=== PATIENT | female | born 1980 | race Hispanic/Latino ===

== ENCOUNTER 2020-06-02 09:43 | Outpatient (CLI) | payer OTHER, SELFPAY ==
[2020-06-02 10:02] LABS: Hematocrit 40.1 % (37.0-47.0); Hemoglobin 13.1 g/dL (12.0-15.0)
== END 2020-06-02 09:44 | disposition home or self-care (01) ==
LOC: ANHSURGERY 09:46
PROVIDERS: Anesthesiology; PCP Family Medicine; Visit Provider Obstetrics & Gynecology
DX: N92.0 Excessive and frequent menstruation with regular cycle (principal)
CPT/HCPCS: 36415; 85014; 85018

== ENCOUNTER 2020-06-09 00:09 | Outpatient (CLI) | payer OTHER, SELFPAY ==
[2020-06-09 19:58] LABS: SARS-CoV-2 RNA PCR Negative
== END 2020-06-09 00:10 | disposition home or self-care (01) ==
LOC: ANHCOVIDDT 00:09
PROVIDERS: PCP Family Medicine; Visit Provider Obstetrics & Gynecology
DX: Z01.812 Encounter for preprocedural laboratory examination (principal); Z20.828 Contact with and (suspected) exposure to other viral communicable diseases
CPT/HCPCS: 87635; C9803; U0003

== ENCOUNTER 2020-06-11 02:51 | Day surgery (SDC) | payer OTHER, SELFPAY ==
[2020-05-27 09:16] VITALS: BMI 32.0
--- NOTE | 2020-06-10 14:07 | WPDANESEPPF ---
Anes - Initial Pre Proc Eval Procedure: Operation Date: 06/11/20 07:30 Proposed Procedures p Hysteroscopy, Endometrial Ablation - Coy Sanz MD s Laparoscopic Bilateral Tubal Ligation With Cautery - Coy Sanz MD Date/Time: 06/10/20 14:07 Surgeon: Coy Sanz MD Pre Op Diagnosis: Desires Sterilization/ Menorrhagia Patient Data Age: 40 Gender: F Height: 1.57 m Weight: 79.38 kg Allergies Allergy/AdvReac Type Severity Reaction Status Date / Time Sulfa (Sulfonamide Allergy Mild swelling, Unverified 05/27/20 09:17 Antibiotics) hives Home Medications Medication Instructions Recorded Confirmed Type meloxicam 7.5 mg PO BID 05/27/20 05/27/20 History montelukast 10 mg PO DAILY 05/27/20 05/27/20 History Patient hx anesthesia problems: none Family hx anesthesia problems: none [facility] Past Medical History Medical History (Updated 06/10/20 @ 14:08 by Kosta Chen MD) Arthritis Asthma Obesity Social History Social History Smoking status: Never smoker Spiritual care concerns: No Anes - Eval Final PreProcedure Day of Procedure 06/10/20 14:07 Patient weight: overweight Heart: regular rate and rhythm Lungs: clear to auscultation and normal air movement Airway: Mallampati scale class II Neurological: alert and oriented Last oral intake: >/= 8 hours ASA classification: II Emergent: no Anesthetic plan: proceed Anesthesia type and monitoring: general ETT Informed Consent: The patient's anesthetic plan and its attendant risks and benefits were discussed with the patient/family/POA. Questions were solicited and answers provided to the satisfaction of the patient/family/POA.
[2020-06-11] VITALS (9 sets, daily range): BP systolic 96–124; BP diastolic 58–82; PULSE 65–86; RESP 13–16; TEMP 36.3–36.4; O2SAT 95–100
[2020-06-11] MEDS: LACTATED RINGERS 1,000 ML 30 ML IV CONT ×2 (06:55→08:47)
[2020-06-11] MEDS: ACETAMINOPHEN 500 MG TABLET 1000 MG PO (07:15)
[2020-06-11] MEDS: KETOROLAC 15 MG/ML VIAL (*BKC) IV PUSH (07:17)
--- NOTE | 2020-06-11 07:25 | WPDHPUPDATE1 ---
History and Physical Update Update Date/Time: 06/11/20 07:25 History and Physical has been reviewed, including an updated exam of the patient. There are NO changes in the patient's condition. Risks, benefits, and alternatives have been discussed and questions answered. Patient agrees to proceed with procedure.
--- NOTE | 2020-06-11 07:41 | PM.IMHP ---
H&P: HPI History of Present Illness Date/Time: 06/11/20 07:41 Chief complaint: Desires Sterilization/ Menorrhagia Narrative: Yareli Lacy is a 40 year old female This patient is a 40-year-old female with severe, debilitating menorrhagia. A profoundly affecting quality of life and activities of daily living. We have agreed to perform endometrial ablation and laparoscopic bilateral tubal ligation. The patient understands that injuries may occur during the surgery. She understands procedure in detail. She understands that injuries could result in hospitalization, more surgery, and severe illness. She understands risk of hemorrhage and infection. Review of Systems Constitutional: Constitutional: Reports no additional constitutional complaints, Denies fatigue, Denies headache(s), Denies lethargy and Denies weakness Eyes: Eyes: Reports no additional eye complaints, Denies blurry vision and Denies photophobia ENT: Reports as per HPI, Denies headache(s) and Denies neck pain Cardiovascular: Cardiovascular: Denies chest pain, Denies diaphoresis, Denies leg edema, Denies palpitations and Denies dyspnea Respiratory: Respiratory: Denies hemoptysis, Denies dyspnea and Denies wheezing Gastrointestinal: Gastrointestinal: Denies abdominal pain, Denies melena, Denies bloating, Denies hematochezia, Denies nausea and Denies vomiting Genitourinary: Genitourinary: Reports no additional female genitourinary complaints Musculoskeletal: Musculoskeletal: Denies joint swelling, Denies neck pain, Denies numbness and Denies stiffness Neurologic: Denies Abnormal speech present, Denies confusion, Denies headache(s), Denies numbness and Denies weakness Psychiatric: Psychiatric: Denies anxiety, Denies confusion, Denies depression, Denies homicidal ideation and Denies suicidal ideation Endocrine: Endocrine: Denies fatigue and Denies palpitations Allergic/Immunologic: Allergic/Immunologic: Denies wheezing PMFSH Past Medical History Medical History (Updated 06/11/20 @ 07:43 by Coy Sanz MD) Arthritis Asthma Obesity Social History Social History Smoking status: Never smoker Spiritual care concerns: No Meds Home Medications and Allergies Home Medications Medication Instructions Recorded Confirmed Type meloxicam 7.5 mg PO BID 05/27/20 06/11/20 History montelukast 10 mg PO DAILY 05/27/20 06/11/20 History Allergies Allergy/AdvReac Type Severity Reaction Status Date / Time Sulfa (Sulfonamide Allergy Mild swelling, Unverified 06/11/20 07:08 Antibiotics) hives Vital Signs Vital Signs - 24 hr 06/11/20 06:47 Temperature 97.5 F L Pulse Rate 86 Respiratory Rate 14 Blood Pressure 124/78 Pulse Oximetry 100 Exam Const: General: healthy appearing, comfortable and no acute distress; No confusion Orientation/consciousness: No confusion Eyes: Direct Ophthalmoscopy: No photophobia Resp: Auscultation: clear to auscultation bilaterally, no rales, no rhonchi and no wheezes Cardio: Rate: regular rate Heart sounds: no click, no murmurs and no rubs GI: Inspection: non-distended GI Palp: No abdominal tenderness Auscultation: normal bowel sounds Neuro: General: No confusion Speech: No Abnormal speech present Extrem: General: normal to inspection, no pedal edema and no calf tenderness Assessment and Plan Assessment and plan (1) Menorrhagia: Code(s): N92.0 - Excessive and frequent menstruation with regular cycle Status: Acute (2) Encounter for female sterilization procedure: Code(s): Z30.2 - Encounter for sterilization Status: Acute Assessment and Plan: this patient is a 40-year-old female with severe menorrhagia and unwanted fertility. We have agreed to perform laparoscopic bilateral tubal ligation and endometrial ablation with hysteroscopy she understands the risks, benefits, and alternatives. She has completed the informed consent process and is ready to proceed.
--- NOTE | 2020-06-11 09:09 | PM.PROC ---
Procedure Note - Detailed Date of procedure: 06/11/20 Pre-op diagnosis: Desires Sterilization/ Menorrhagia Post-op diagnosis: same ( hemoperitoneum) Procedure performed: Laparoscopic bilateral tubal ligation, Endometrial Ablation Description of procedure: Patient was taken the operating room. She has prepped draped in the dorsal lithotomy position after induction of general anesthesia. A 5 mm abdominal incision was made in left upper quadrant of the abdomen with scalpel. A 5 mm trocars inserted the intra-abdominal cavity under direct visualization of the scope. Pneumoperitoneum was achieved. A 5 mm periumbilical incision was made using a scalpel on the abdominal scan. A 5 mm trocar was inserted the intra-abdominal cavity under visualization of the scope. The fallopian tube was grasped with the bipolar cautery in the ampullary region. It was completely desiccated in a 1.5 cm area of the fallopian tube. This was performed in identical fashion on the contralateral side. The instruments were withdrawn. The pneumoperitoneum was reduced. The trocars were removed. The skin was closed with subcuticular 4 Monocryl. This incisions were covered with Dermabond. Our attention was then turned to the endometrial ablation portion of the procedure. A speculum was placed in the vagina. The cervix was grasped with a tenaculum. The cervix was dilated to approximately 8 mm with Chow dilators. The hysteroscope was inserted. And the below findings were noted. Measurements of the cervix were taken using the uterine sound and the hysteroscope. The intrauterine cavity measurements were entered into the hand piece of the device. The device was inserted the intrauterine cavity. The array was expanded. The balloon cuff was inflated. The uterus was airtight. The energy and safety cycles within initiated. They were completed under 3 minutes. The balloon cuff was collapsed, the array was collapsed, and the device was removed the uterine cavity. the hysteroscope was reinserted and the cavity was well desiccated, it was clearly observed. Hysteroscope was withdrawn. The tenaculum was removed. The speculum was removed. The patient tolerated the procedure well. She was taken to recover room in stable condition. Anesthesia: GETA Surgeon: Coy Sanz MD Estimated blood loss (mL): 10 Drains: No Packing: No Pathology: none sent Complications: No immediate complications Condition: stable Disposition: PACU Findings: marked Hemoperitoneum, otherwise normal pelvic anatomy
== END 2020-06-11 10:41 | disposition home or self-care (01) ==
PROVIDERS: PCP Family Medicine; Visit Provider Obstetrics & Gynecology
PROC: 0U5B8ZZ Destruction of Endometrium, Via Natural or Artificial Opening Endoscopic (ICD-10-PCS; CPT 58563; principal; 2020-06-11 07:30)
PROC: (CPT 58671; 2020-06-11 07:30)
DX: Z30.2 Encounter for sterilization (principal); N92.0 Excessive and frequent menstruation with regular cycle; J45.909 Unspecified asthma, uncomplicated; M19.90 Unspecified osteoarthritis, unspecified site; E66.9 Obesity, unspecified; Z68.32 Body mass index [BMI] 32.0-32.9, adult
CPT/HCPCS: 58670; 58563; A9270; J1885; J2250; J2405; J2704; J3010; J7030; J7120